=== PATIENT | male | born 2000 | race Hispanic/Latino ===

== ENCOUNTER 2021-03-08 23:25 | Emergency (ER) | payer OTHER ==
[~2021-03-08] VITALS: Ht 175.3 cm; Wt 77.1 kg
[2021-03-08 23:27] VITALS: BP 129/79
== END 2021-03-09 00:31 | disposition home or self-care (01) ==
LOC: EDH 23:25
DX: U07.1 COVID-19 (principal); G43.909 Migraine, unspecified, not intractable, without status migrainosus
CPT/HCPCS: 87635; 87804 ×2; 87880; 99283; C9803